=== PATIENT | female | born 1965 | race Caucasian/White ===

== ENCOUNTER 2017-03-16 11:54 | Emergency (ER) | payer OTHER ==
[2017-03-16] MEDS ORDERED: FLUORESCEIN STRIP 1 MG/STRIP STRIP ONE (12:43)
[2017-03-16] MEDS ORDERED: ERYTHROMYCIN BASE OPHTH 1 GM OINT ONE (12:54)
--- NOTE | 2017-03-16 13:05 | ER PHYSICIAN DOCUMENTATION ---
Physician Documentation [facility] Name:Ceci Rey Age:51 yrs Sex:Female :1965 Arrival Date:03/16/2017 Time:11:54 Bed2 Private MD: Chilo Martinez Disposition: 03/16/17 12:53 Discharged to Home/Self Care. Impression: Keratitis - : From Contact Lens. - Condition is Good. - Discharge Instructions: CONTACT LENS CORNEAL INJURY - CORNEAL INJURY, Contact Lens. - Prescriptions for Tobramycin Sulfate 0.3 % Ophthalmic - instill 2 drop by OPHTHALMIC route every 4-6 hours OD; 5 milliliter. - Medical Reconciliation form form. - Follow up: Private Physician; When: 2 - 3 days; Reason: Recheck today's complaints, Continuance of care. - Problem is new. - Symptoms have improved. - Notes: Keep patch on for 24 hours. Apply Ointment every 6 hours for 24 hours....then Tobramycin Eye Drops and Natural Tears, alternating every 3 hours. No contact lens in Right eye until your Eye Surgeon has given the OK. Throw away your Diposable Contact Lenses... Ibuprofen 400mg by mouth every 6 hours with food for 2 - 3 days HPI: 03/16 12:00 This 51 yrs old Female presents to ER via Private Vehicle with complaints of cd Eye Injury - RIGHT. 12:00 The patient is experiencing blurred vision, pain, redness, The patient sustained cd Patient wears contact lenses. The right one was uncomfortable this morning. She removed it, washed her eye and placed it back in her right eye. It progressively became more painful and red...so she removed her right contact lens and came in for evaluation. She does not think she has a FB in that eye. She has not been exposed to snowpack UV light. She has had minimal discharge.. Onset: The symptom(s)/episode began/occurred acutely, this morning. Duration: the symptoms are continuous. Aggravated by blinking, Alleviated by nothing. Associated signs and symptoms: Pertinent negatives: None. Patient wears soft contacts. Severity of symptoms: At their worst the symptoms were moderate in the emergency department the symptoms are unchanged. Historical: - Allergies: PENICILLINS; - Home Meds: 1. None - PMHx: None; - PSHx: None; - Tetanus: < 10 years. - Ebola Screening: : Patient negative for fever greater than or equal to 101.5 degrees Fahrenheit, and additional compatible Ebola Virus Disease symptoms. Patient denies exposure to infectious person. Patient denies travel to an Ebola-affected area in the 21 days before illness onset. No symptoms or risks identified at this time. . - Immunization history: Flu Vaccine < 1 year. - Social history: Smoking status: Patient states was never smoker of tobacco. Patient/guardian denies using alcohol, street drugs, IV drugs, marijuana. ROS: 13:05 Constitutional: Negative for chills, fever. cd 13:05 Eyes: Positive for blurry vision, pain, redness, Negative for foreign body sensation, photophobia, visual disturbance, vision loss. 13:05 ENT: Negative for rhinorrhea, sinus congestion, sinus pain. Exam: 13:05 Visual Acuity: I have reviewed the nursing documentation. cd 13:05 Constitutional: This is a well developed, well nourished patient who is awake, alert, cd and in no acute distress. Head/Face: Normocephalic, atraumatic. 13:05 ENT: Nares patent. No nasal discharge, no septal abnormalities noted. Tympanic membranes are normal and external auditory canals are clear. Oropharynx with no redness, swelling, or masses, exudates, or evidence of obstruction, uvula midline. Mucous membranes moist. 13:05 Eyes: Periorbital structures: appear normal, Pupils: equal, round, and reactive to light and accomodation, Extraocular movements: intact throughout, Conjunctiva: injected, in the right eye, Corneas: abrasion, that is small, approximately 3 mm(s), on the right, at 6 o'clock, a fluorescein strip employed to appreciate the findings, Sclera: no appreciated abnormality, Anterior chamber: normal, no hyphema, Lids and lashes: appear normal. Vital Signs: 12:05 BP 135 / 74; Pulse 74; Resp 16; Temp 98.2(O); Pulse Ox 94% on R/A; sc1 Visual Acuity: 12:05 Left Eye Visual acuity 20/80, ; Right Eye Visual acuity 20/30, ; Both Eyes Visual sc1 acuity 20/30; With Lenses; right eye is corrected with a contact and right eye is not corrected. MDM: 12:52 Patient medically screened. cd 13:05 Differential diagnosis: Corneal abrasion of right eye. Corneal ulcer of right eye. cd Contact Keratitis. Data reviewed: vital signs, nurses notes, old medical records, and as a result, I will discharge patient, administer antibiotics EES Eye Ointment x 24 hrs, then Tobramycin Eyedrops thereafter. Data interpreted: Pulse oximetry: on room air is 94 %. Interpretation: normal. Counseling: I had a detailed discussion with the patient and/or guardian regarding: the historical points, exam findings, and any diagnostic results supporting the discharge/admit diagnosis, the need for outpatient follow up, for a recheck, with the patient's primary care provider, to return to the emergency department if symptoms worsen or persist or if there are any questions or concerns that arise at home. Response to treatment: the patient's symptoms have markedly improved after treatment, the patient's condition has returned to base line, and as a result, I will discharge patient. Dispensed Medications: 12:35 Drug: Fluorescein Strip 1 strip; Route: Ophthalmic; Site: right eye; ga1 12:36 Drug: Tetracaine Solution (2 %) 1 application; Route: Topical; Site: left eye; ga1 12:41 Drug: erythromycin Ointment 1 application; Route: Ophthalmic; Site: right eye; ga1 Signatures: Alisa Noguera RN RN sc1 Chilo Davis MD MD cd
--- NOTE | 2017-03-16 13:05 | ER NURSING DOCUMENTATION ---
Nurse's Notes [facility] Name:Ceci Rey Age:51 yrs Sex:Female :1965 Arrival Date:03/16/2017 Time:11:54 Bed2 Private MD: Diagnosis:Keratitis-: From Contact Lens Presentation: 03/16 11:57 Acuity: YANET 3 sc1 13:02 Presenting complaint: Patient states: work up this morning with pain and irritation to sc1 her right eye. Pt. wears contacts and does not have one in her right. Transition of care: Home. Mechanism of Injury: No Mechanism of Injury. The patient denies any loss of vision. 13:02 Method Of Arrival: Private Vehicle [facility] Triage Assessment: 12:04 General: Appears in no apparent distress, well developed, well nourished, well groomed, nj1 Behavior is cooperative, pleasant. Pain: Complains of pain in left eye. EENT: Eyes are tearing on left eye Sclera/Cornea are reddened in left eye. Historical: - Allergies: PENICILLINS; - Home Meds: 1. None - PMHx: None; - PSHx: None; - Tetanus: < 10 years. - Ebola Screening: : Patient negative for fever greater than or equal to 101.5 degrees Fahrenheit, and additional compatible Ebola Virus Disease symptoms. Patient denies exposure to infectious person. Patient denies travel to an Ebola-affected area in the 21 days before illness onset. No symptoms or risks identified at this time. . - Immunization history: Flu Vaccine < 1 year. - Social history: Smoking status: Patient states was never smoker of tobacco. Patient/guardian denies using alcohol, street drugs, IV drugs, marijuana. Screenin:02 Infectious Disease Risk None. Abuse screen: Denies threats or abuse. Nutritional sc1 screening: No deficits noted. Vital Signs: 12:05 BP 135 / 74; Pulse 74; Resp 16; Temp 98.2(O); Pulse Ox 94% on R/A; sc1 Visual Acuity: 12:05 Left Eye Visual acuity 20/80, ; Right Eye Visual acuity 20/30, ; Both Eyes Visual sc1 acuity 20/30; With Lenses; right eye is corrected with a contact and right eye is not corrected. ED Course: 11:56 Patient arrived in ED. 11:57 Noguera, Alisa, RN is Primary Nurse. [facility] 11:57 Triage completed. nj1 12:12 Notified ED Physician of patient's arrival and chief complaint. Dr. Davis notified. nj1 Allergy Band Placed Arm band placed on Bed in low position Call Light in Reach HOB Elevated. 12:33 Assist Provider Assist provider with eye exam of right eye. using fluorescein stain, nj1 ophthalmoscope, Performed by Chilo Davis MD Patient tolerated well. 12:52 Chilo Davis MD is Attending Physician. cd 13:03 Valuables Remains with patient. nj1 Administered Medications: 12:35 Drug: Fluorescein Strip 1 strip; Route: Ophthalmic; Site: right eye; nj1 12:36 Drug: Tetracaine Solution (2 %) 1 application; Route: Topical; Site: left eye; nj1 12:41 Drug: erythromycin Ointment 1 application; Route: Ophthalmic; Site: right eye; [facility] Outcome: 12:53 Discharge ordered by MD. cd 13:02 Discharged to home ambulatory. [facility] 13:02 Condition: stable 13:02 Discharge instructions given to patient, Instructed on discharge instructions, follow up and referral plans. medication usage, Demonstrated understanding of instructions, medications, Prescriptions given X 1. 13:04 Patient left the ED. [facility] 03/17 14:59 Discharge F/U Call: Unable to reach: left voicemail: [email or web address] Signatures: Alisa Noguera, RN RN sc1 Chilo Davis MD MD cd Kruger, Meg RN RN [id number] Omid Servin
== END 2017-03-16 13:05 | disposition home or self-care (01) ==
LOC: ER 11:54
DX: H16.291 Other keratoconjunctivitis, right eye (principal); H18.821 Corneal disorder due to contact lens, right eye
CPT/HCPCS: 99283